=== PATIENT | male | born 1950 | race Caucasian/White ===

== ENCOUNTER 2016-06-28 08:47 | Outpatient (CLI) | payer OTHER ==
[~2016-06-28 08:47] MED LIST: DICLOFENAC SODI75 MG PO; NORCO1 TA1 PO; SIMVASTATIN20 MG PO; TAMSULOSIN HCL0.4 MG PO
--- NOTE | 2016-06-28 10:03 | DIAGNOSTIC IMAGING REPORT ---
PROCEDURE: US KIDNEY/RENAL COMPLETE INDICATION: RENAL - CYSTS ON CT, follow-up TECHNIQUE: Transabdominal scans of the kidneys with calculation of resistive indices. Prevoid and postvoid bladder volumes were obtained. COMPARISON: Chest CT 06/16/2016 FINDINGS: RIGHT: Kidney measures 12.2 x 5.5 x 5.8 cm. Three simple cyst measure between 2.5 and 3.2 cm. Normal resistive indices measure 0.64 or less. LEFT: Kidney measures 14.6 x 4.5 cm. Multiple cysts. Largest cyst in the upper pole measures 14.3 cm with some debris in the dependent portion. There is no abnormal vascularity . Normal resistive indices measure 0.6 or less. BLADDER: Bilateral ureteral jets visualized. Bladder has a normal appearance. Prevoid volume 332 ml and postvoid volume 344 ml. Prostate not well visualized. IMPRESSION: 1. 14.3 cm left renal upper pole cyst with posterior debris 2. Multiple simple bilateral renal cysts. 3. 340 ml postvoid residual bladder volume
== END 2016-06-28 23:00 ==
LOC: US SRH 08:47
DX: N28.1 Cyst of kidney, acquired (principal)